=== PATIENT | female | born 1980 | race African-American/Black ===

== ENCOUNTER 2016-11-03 11:46 | Emergency (ER) | payer OTHER ==
[~2016-11-03] VITALS: Ht 177.8 cm; Wt 65.8 kg
[2016-11-03] MEDS ORDERED: TDAP DIPH,PERTUSS,TET VAC/PF 0.5 ML DISP.SYRIN IM ONE ×2 (12:30→12:49)
[2016-11-03] MEDS ORDERED: LIDOCAINE HCL 1% 20 ML VIAL IJ ONE (13:15)
--- NOTE | 2016-11-03 13:34 | NUR ---
Patient discharged to home in stable conditon. Written and verbal after care instructions given. Patient verbalizes understanding of instructions.
== END 2016-11-03 13:35 | disposition home or self-care (01) ==
LOC: ER 11:52
DX: S61.412A Laceration without foreign body of left hand, initial encounter (principal); W45.8XXA Other foreign body or object entering through skin, initial encounter; Y93.89 Activity, other specified; Y92.000 Kitchen of unspecified non-institutional (private) residence as the place of occurrence of the external cause; Y99.9 Unspecified external cause status
CPT/HCPCS: 12002; 99283; A4217; A4663; J3490; 90715

== ENCOUNTER 2019-04-02 13:46 | Emergency (ER) | payer OTHER ==
[~2019-04-02] VITALS: Ht 170.2 cm; Wt 68.0 kg
[2019-04-02] MEDS ORDERED: DEXAMETHASONE SOD PHOSPHATE 10 MG INJ ONE (14:26)
[2019-04-02] MEDS ORDERED: IBUPROFEN 800 MG TABLET ONE (14:26)
[2019-04-02] MEDS ORDERED: IBUPROFEN 800 MG TABLET PO ONE (14:30)
[2019-04-02] MEDS ORDERED: DEXAMETHASONE SOD PHOSPHATE 4 MG INJ IM ONE (14:30)
[2019-04-02] MEDS ORDERED: PENICILLIN G BENZATHINE 2.4 MMU/4 ML DISP.SYRIN IM ONE ×2 (15:30→15:42)
--- NOTE | 2019-04-02 15:47 | NUR ---
Patient discharged to home in stable conditon. Written and verbal after care instructions given. Patient verbalizes understanding of instructions.
== END 2019-04-02 15:48 | disposition home or self-care (01) ==
LOC: ER 13:46
DX: J02.0 Streptococcal pharyngitis (principal); J02.9 Acute pharyngitis, unspecified
CPT/HCPCS: 36415; 86403; 96372; 99283; J1100; A4663